=== PATIENT | female | born 1955 | race Caucasian/White ===

== ENCOUNTER 2017-11-30 07:27 | Emergency (ER) | payer BC, OTHER ==
--- NOTE | 2017-11-30 07:56 | ER ---
Nurse's Notes [facility] Name: Rossi Judge Age: 62 yrs Sex: Female : 1955 Arrival Date: 11/30/2017 Time: 07:28 Bed 13 Private MD: Rodo Gary Diagnosis: Bullous myringitis, right ear Presentation: 11/30 07:37 Presenting complaint: Patient states: R ear pain with drainage that began at 0430 this morning. Transition of care: patient was not received from another setting of care. Onset of symptoms was November 30, 2017. Initial Sepsis Screen: Does the patient meet any 2 criteria? No. Patient's initial sepsis screen is negative. Does the patient have a suspected source of infection? No. Patient's initial sepsis screen is negative. Care prior to arrival: None. 07:37 Method Of Arrival: Ambulatory ss 07:37 Acuity: CYRIL 5 ss Historical: - Allergies: 07:39 No Known Allergies; ss - PMHx: 07:39 Hypertension; Arthritis; hoshimoto's; ss - Immunization history:: Adult Immunizations up to date. - Social history:: Smoking status: Patient/guardian denies using tobacco, but has a distant history of tobacco abuse. Screenin:40 Abuse screen: Denies threats or abuse. Denies injuries from another. Nutritional ss screening: No deficits noted. Tuberculosis screening: Never had TB. Fall Risk None identified. Assessment: 07:40 General: Appears in no apparent distress. comfortable, Behavior is calm, cooperative. ss Pain: Complains of pain in right ear Pain currently is 5 out of 10 on a pain scale. Pain began 4 hours ago. Is continuous. Neuro: Level of Consciousness is awake, alert, Oriented to person, place, time, situation. Respiratory: Airway is patent Respiratory effort is even, unlabored, Respiratory pattern is regular, symmetrical, Breath sounds are clear bilaterally. GI: Patient currently denies abdominal pain, diarrhea, nausea, vomiting. EENT: Reports recent onset of nasal congestion. EENT: Reports. EENT: Reports patient c/o crackling sound in R ear with blood tinged drainage. . Derm: Skin is intact, is healthy with good turgor, Skin is dry, Skin is pink, warm \T\ dry. normal. Musculoskeletal: Circulation, motion, and sensation intact. Range of motion: intact in all extremities, Swelling absent. Vital Signs: 07:39 BP 165 / 87; Pulse 64; Resp 16; Temp 97.8(TE); Pulse Ox 98% on R/A; Weight 90.72 kg; ss Height 5 ft. 3 in. (160.02 cm); Pain 5/10; 07:39 Body Mass Index 35.43 (90.72 kg, 160.02 cm) ED Course: 07:28 Patient arrived in ED. as 07:28 Rodo Gary MD is Private Physician. as 07:31 Gerson Tripp MD is Attending Physician. ps1 07:34 Rossi Kaminski, RN is Primary Nurse. ph 07:38 Triage completed. ss 07:39 Arm band placed on right wrist. ss 07:40 Patient has correct armband on for positive identification. Bed in low position. Call ss light in reach. Adult w/ patient. 07:55 Rodo Gary MD is Referral Physician. ps1 08:21 No provider procedures requiring assistance completed. Patient did not have IV access ss during this emergency room visit. Administered Medications: No medications were administered Outcome: 07:55 Discharge ordered by . ps1 08:21 Discharged to home ambulatory, with family. ss 08:21 Condition: good 08:21 Discharge instructions given to patient, family, Instructed on discharge instructions, follow up and referral plans. medication usage, Demonstrated understanding of instructions, follow-up care, medications, Prescriptions given X 3. 08:31 Patient left the ED. Signatures: Salud Roberto Shelby, RN RN Rossi Kaminski, ROBINSON RN Gerson Tripp MD MD ps1
--- NOTE | 2017-11-30 07:56 | EDPHYS ---
Physician Documentation [facility] Name: Rossi Judge Age: 62 yrs Sex: Female : 1955 Arrival Date: 11/30/2017 Time: 07:28 Bed 13 Private MD: Rodo Gary ED Physician Gerson Tripp HPI: 11/30 07:35 This 62 yrs old Female presents to ER via Unassigned with complaints of ps1 Drainage From Ear. 07:35 The patient presents with drainage, that is bloody, a fullness, pain. The complaints ps1 affect the right ear. Onset: The symptoms/episode began/occurred this morning. Modifying factors: The symptoms are alleviated by nothing, the symptoms are aggravated by nothing. Associated signs and symptoms: Pertinent positives: sinus trouble, Pertinent negatives: fever, vertigo. Severity of symptoms: At their worst the symptoms were moderate in the emergency department the symptoms are unchanged. The patient has not experienced similar symptoms in the past. Historical: - Allergies: 07:39 No Known Allergies; ss - PMHx: 07:39 Hypertension; Arthritis; hoshimoto's; ss - Immunization history:: Adult Immunizations up to date. - Social history:: Smoking status: Patient/guardian denies using tobacco, but has a distant history of tobacco abuse. ROS: 07:35 Constitutional: Negative for fever, chills, and weight loss, Eyes: Negative for injury, ps1 pain, redness, and discharge, Neck: Negative for injury, pain, and swelling, Cardiovascular: Negative for chest pain, palpitations, and edema, Respiratory: Negative for shortness of breath, cough, wheezing, and pleuritic chest pain, Abdomen/GI: Negative for abdominal pain, nausea, vomiting, diarrhea, and constipation, Back: Negative for injury and pain, MS/Extremity: Negative for injury and deformity, Skin: Negative for injury, rash, and discoloration, Neuro: Negative for headache, weakness, numbness, tingling, and seizure. 07:35 ENT: Positive for drainage from ear(s), Negative for injury or acute deformity. Exam: 07:35 Constitutional: This is a well developed, well nourished patient who is awake, alert, ps1 and in no acute distress. Head/Face: Normocephalic, atraumatic. Eyes: Pupils equal round and reactive to light, extra-ocular motions intact. Lids and lashes normal. Conjunctiva and sclera are non-icteric and not injected. 07:35 Chest/axilla: Normal chest wall appearance and motion. Nontender with no deformity. No lesions are appreciated. Cardiovascular: Regular rate and rhythm. No gallops, murmurs, or rubs. Normal PMI, no JVD. No pulse deficits. Respiratory: Lungs have equal breath sounds bilaterally, clear to auscultation and percussion. No rales, rhonchi or wheezes noted. No increased work of breathing, no retractions or nasal flaring. Abdomen/GI: Soft, non-tender, with normal bowel sounds. No distension or tympany. No guarding or rebound. No evidence of tenderness throughout. Skin: Warm, dry with normal turgor. Normal color with no rashes, no lesions, and no evidence of cellulitis. MS/ Extremity: Pulses equal, no cyanosis. Neurovascular intact. Full, normal range of motion. 07:35 ENT: External ear(s): are unremarkable, Ear canal(s): are normal, TM's: bulging, fluid levels, rupture, on the right, with bloody discharge, and vesicles appears c/w bullous myringitis. . Vital Signs: 07:39 BP 165 / 87; Pulse 64; Resp 16; Temp 97.8(TE); Pulse Ox 98% on R/A; Weight 90.72 kg; ss Height 5 ft. 3 in. (160.02 cm); Pain 5/10; 07:39 Body Mass Index 35.43 (90.72 kg, 160.02 cm) MDM: 07:35 Data reviewed: vital signs, nurses notes. ED course: Presentation c/w bullous ps1 myringitis. . ED course: Will give steroids. augmentin. anti-histamine. . 07:55 Patient medically screened. ps1 Administered Medications: No medications were administered Disposition: 11/30/17 07:55 Discharged to Home. Impression: Bullous myringitis, right ear. - Condition is Stable. - Discharge Instructions: Otitis Media, Adult, [id number]. - Prescriptions for Claritin 10 mg Oral Tablet - take 1 tablet by ORAL route once daily As needed; 30 tablet. Medrol (Rboy) 4 mg Oral Tablets, Dose Pack - take 1 tablet by ORAL route as directed - follow package instructions; 1 packet. Augmentin 875- 125 mg Oral Tablet - take 1 tablet by ORAL route every 12 hours for 10 days; 20 tablet. - Medication Reconciliation Form, Thank You Letter, Antibiotic Education, Prescription Opioid Use form. - Follow up: Rodo Gary MD; When: As needed; Reason: Recheck today's complaints, Continuance of care, Re-evaluation by your physician. Follow up: Emergency Department; When: As needed; Reason: Fever > 102 F, Worsening of condition. - Problem is new. - Symptoms are unchanged. Signatures: Stacie Santoro RN RN ss Gerson Tripp MD MD ps1 Corrections: (The following items were deleted from the chart) 07:58 07:35 ED course: Will give steroids. Azithromycin. anti-histamine. . ps1 ps1
== END 2017-11-30 08:31 | disposition home or self-care (01) ==
LOC: ER 07:27
DX: H73.011 Bullous myringitis, right ear (principal)
CPT/HCPCS: 99282